=== PATIENT | male | born 1935 | race Caucasian/White ===

== ENCOUNTER 2017-10-12 21:44 | Emergency (ER) | payer MEDICARE, OTHER ==
[~2017-10-12] VITALS: Ht 175.3 cm; Wt 95.3 kg
--- NOTE | 2017-10-12 21:45 | NUR ---
SUE FROM HOME ACCOMPANIED BY DT PT HAS NOT URINATED SINCE YESTERDAY AFTER CATHETER WAS REMOVED, PATIENT ALSO REPORTED NOTICING BLOOD. PATIENT CO BLADDER PRESSURE LIKE PAIN,. VSS/ AFEBRILE. CONNECTED PT TO TELE MONITOR
--- NOTE | 2017-10-12 22:08 | NUR ---
MD STACY AT BEDSIDE
[2017-10-12 23:38] VITALS: BP 130/80
--- NOTE | 2017-10-12 23:38 | NUR ---
Patient discharged to home in stable condition. Written and verbal after care instructions given. Patient verbalizes understanding of instruction.
== END 2017-10-12 23:39 | disposition home or self-care (01) ==
LOC: ER 21:49
DX: R33.9 Retention of urine, unspecified (principal); I10 Essential (primary) hypertension; J44.9 Chronic obstructive pulmonary disease, unspecified; E11.9 Type 2 diabetes mellitus without complications; Z96.642 Presence of left artificial hip joint
CPT/HCPCS: A4606; Z7610

== ENCOUNTER 2017-11-01 20:25 | Emergency (ER) | payer MEDICARE, OTHER ==
[~2017-11-01] VITALS: Ht 193 cm; Wt 83.9 kg
--- NOTE | 2017-11-01 20:39 | NUR ---
PT BB FAMILY MEMBER IN WHEELCHAIR C/O "NO URINE IN CATHETER X1 DAYS WITH PRESSURE IN BLADDER". PT STATES PAIN 8/10, NONE RADIATING. PT HAS LEG BAG IN PLACE WITH NO S/S OF INFECTION OR FOUL SMELLS NOTED. PT IS AAOX4. PT HARD OF EARING. RESP EVEN AND UNLABORED. NO S/S OF ACUTE DISTRESS NOTED. VSS. AWAITING MD FOR EVAL. FAMILY MEMBER BEDSIDE WITH PT.
--- NOTE | 2017-11-01 21:10 | NUR ---
URINARY CATHETER LEG BAG REPLACED. PT STATES RELIEF FROM LOWER ABD PRESSURES ONCE URINE OUTFLOW BEGAN. PT RESTINF COMOFRTABLY IN BED.
[2017-11-01 21:30] LABS: APPEARANCE,URINE Cloudy (CLEAR); BILIRUBIN,URINE Negative (NEGATIVE); BLOOD, URINE Large Ery/uL (NEGATIVE); COLOR,URINE Dark (YELLOW); KETONES,URINE Trace (NEGATIVE); LEUKOCYTE ESTERASE ,URINE Negative (NEGATIVE); NITRITE, URINE Negative (NEGATIVE); PROTEIN,URINE 30 mg/dl (NEGATIVE); UGLUCOSE >=1000 mg/dL (NEGATIVE)
[2017-11-01 21:33] LABS: BACTERIA,URINE Rare /HPF (None Seen); RBC,URINE 21-50 /HPF (0-2); SQUAMOUS EPITHELIAL CELL,UR Few /HPF (None Seen); WBC,URINE 0-2 /HPF (0-3)
--- NOTE | 2017-11-01 21:59 | NUR ---
Patient discharged to home in stable condition. Written and verbal after care instructions given. Patient verbalizes understanding of instruction.
[2017-11-01 22:00] VITALS: BP 139/86
== END 2017-11-01 22:01 | disposition home or self-care (01) ==
LOC: ER 20:27
DX: T83.091A Other mechanical complication of indwelling urethral catheter, initial encounter (principal); R33.9 Retention of urine, unspecified; E11.9 Type 2 diabetes mellitus without complications; I10 Essential (primary) hypertension; J44.9 Chronic obstructive pulmonary disease, unspecified; Z96.642 Presence of left artificial hip joint; Y92.89 Other specified places as the place of occurrence of the external cause
CPT/HCPCS: 81000-TC; 87086-TC; A4606; Z7610

== ENCOUNTER 2017-11-04 01:09 | Emergency (ER) | payer MEDICARE, OTHER ==
[~2017-11-04] VITALS: Ht 193 cm; Wt 83.9 kg
--- NOTE | 2017-11-04 01:49 | NUR ---
EMPTIED CATHETER- 700 CC OF URINE WITH SEDIMENTS
[2017-11-04 01:51] VITALS: BP 115/62
== END 2017-11-04 01:51 | disposition home or self-care (01) ==
LOC: ER 01:15
DX: T83.091A Other mechanical complication of indwelling urethral catheter, initial encounter (principal); R33.9 Retention of urine, unspecified; E11.9 Type 2 diabetes mellitus without complications; I10 Essential (primary) hypertension; J44.9 Chronic obstructive pulmonary disease, unspecified; Z96.642 Presence of left artificial hip joint; Y92.89 Other specified places as the place of occurrence of the external cause
CPT/HCPCS: A4606; Z7610